=== PATIENT | female | born 1980 | race American Indian/Alaskan Native ===

== ENCOUNTER 2022-08-31 10:08 | Emergency (ER) | payer OTHER, MEDICAID ==
[~2022-08-31] VITALS: Ht 157.5 cm; Wt 89.5 kg
[2022-08-31 10:28] VITALS: BP 151/103
== END 2022-08-31 11:22 | disposition home or self-care (01) ==
LOC: ER 10:09
DX: M79.18 Myalgia, other site (principal); Z56.0 Unemployment, unspecified; V89.2XXA Person injured in unspecified motor-vehicle accident, traffic, initial encounter; Y93.89 Activity, other specified; Y92.89 Other specified places as the place of occurrence of the external cause; Y99.8 Other external cause status
CPT/HCPCS: 99282